=== PATIENT | female | born 1975 | race Caucasian/White ===

== ENCOUNTER 2023-01-02 10:46 | Outpatient (CLI) | payer OTHER, SELFPAY ==
--- NOTE | 2023-01-06 16:18 | WPDHOLTEREM ---
Holter/Event Monitor Holter/Event Monitor Date of procedure: 01/02/23 Holter/Event Procedure: 48 Hr Holter Monitor Indications: Palpitations Conclusion: 1. 48 hour holter monitor on 01/02/23. 2. Predominant rhythm is sinus rhythm. HR range 51-169 bpm; average 83 bpm. 3. There are 13,085 premature supraventricular complexes and 579 supraventricular couplets, 14 supraventricular bigeminy and 174 supraventricular trigeminy. There are 726 episodes of atrial tachycardia, fastest at 222 bpm and longest lasting 80 beats. 4. There are 1,008 premature ventricular complexes, 617 ventricular couplets, 25 ventricular triplets, 4 ventricular bigeminy and 6 ventricular trigeminy. There are 18 episodes of ventricular tachycardia, fastest at 200 bpm and longest lasting 9 beats. 5. No sinoatrial or atrioventricular blocks. No significant pauses greater than 2 seconds. 6. Patient reports symptoms of flutter which demonstrate sinus rhythm, HR range 72-114 bpm with PAC's and PVC's.
== END 2023-01-02 10:47 | disposition home or self-care (01) ==
LOC: ANHCARD 10:47
PROVIDERS: PCP Family Medicine; Visit Provider Nurse Practitioner Family
DX: R00.2 Palpitations (principal)
CPT/HCPCS: 93225; 93226

== ENCOUNTER 2023-05-29 09:13 | Day surgery (SDC) | payer OTHER, SELFPAY ==
[2023-03-31 10:21] VITALS: BMI 29.7
[2023-05-08 11:38] VITALS: BMI 28.2
[2023-05-29 09:49] VITALS: BMI 27.1
--- NOTE | 2023-05-29 09:56 | PM.HPGS ---
History of Present Illness History of Present Illness Consent: Risks, benefits, and alternatives have been discussed and questions answered. Patient agrees to proceed with procedure. Chief complaint: Neoplasm Screening Narrative: Kathleen Blanco is a 47 year old female Presents for screening colonoscopy. Patient has current weight appetite and is are normal. Patient denies abdominal pain. She has had no bleeding. Family history is noncontributory. Review of Systems Review of Systems: Review of systems noncontributory. [facility] Past Medical History Medical History History of chicken pox Family History Family History Mother Family history of thyroid disease Family history of arthritis Adopted Arthritis Grandparent Brain cancer Grandparent Heart disease Social History Social History (Updated 12/04/22 @ 13:56 by Sherwin Escobedo MA) Years smoked: 15 Smoking status: Former smoker Second hand tobacco smoke exposure: No Smoking end date: 09/08/04 Alcohol intake: never Drinks per week: 4 Substance use: never Substance use type: does not use Lack of Transportation: No Lack of Food: Never True Current Housing: I Have Housing Concerned About Future Housing: No Difficulty Paying Gas/Electric Bills: No Difficulty Paying for Meds: No Currently Unemployed: No Education: Master's Degree or Higher Difficulty w/ Childcare or Family Care: No Living arrangements: with family Spiritual care concerns: No Meds Home Medications and Allergies Home Medications Medication Instructions Recorded Confirmed Type levothyroxine 125 mcg tablet 125 mcg PO DAILY 05/08/23 05/29/23 History Allergies Allergy/AdvReac Type Severity Reaction Status Date / Time Sulfa (Sulfonamide Allergy Unknown Fever Verified 03/04/23 09:19 Antibiotics) Exam Narrative: Physical exam revealed patient to be alert. Signs stable. HEENT exam is on unremarkable. Patient is anicteric. Clear to auscultation and per heart is without murmur or extra sounds. Abdomen bowel sounds are present soft nontender with no organomegaly. Digital external rectal exam normal. Assessment and Plan Assessment and plan (1) Encounter for screening colonoscopy: Code(s): Z12.11 - Encounter for screening for malignant neoplasm of colon Status: Acute Assessment and Plan: Patient presents today for screening colonoscopy. She appears to be at average risk for colon polyps. Further recommendations may be given after endoscopy.
[2023-05-29] MEDS: LACTATED RINGERS 1,000 ML 150 ML IV CONT (10:03)
--- NOTE | 2023-05-29 10:41 | P.PNAN_ITS ---
Anes - Initial Pre Proc Eval Procedure: Operation Date: 05/29/23 11:00 Proposed Procedures p Screening Colonoscopy - Hugo Nieto MD Date/Time: 05/29/23 10:41 Surgeon: Hugo Nieto MD Pre Op Diagnosis: Neoplasm Screening Patient Data Age: 47 Gender: F Height: 1.65 m Weight: 73.8 kg Allergies Allergy/AdvReac Type Severity Reaction Status Date / Time Sulfa (Sulfonamide Allergy Unknown Fever Verified 03/04/23 09:19 Antibiotics) Home Medications Medication Instructions Recorded Confirmed Type levothyroxine 125 mcg tablet 125 mcg PO DAILY 05/08/23 05/29/23 History Patient hx anesthesia problems: none Family hx anesthesia problems: none Results Review: All pre-operative results and documents have been reviewed as part of the pre- operative evaluation. [facility] Past Medical History Medical History History of chicken pox Family History Family History Mother Family history of thyroid disease Family history of arthritis Adopted Arthritis Grandparent Brain cancer Grandparent Heart disease Social History Social History Years smoked: 15 Smoking status: Former smoker Second hand tobacco smoke exposure: No Smoking end date: 09/08/04 Alcohol intake: never Drinks per week: 4 Substance use: never Substance use type: does not use Lack of Transportation: No Lack of Food: Never True Current Housing: I Have Housing Concerned About Future Housing: No Difficulty Paying Gas/Electric Bills: No Difficulty Paying for Meds: No Currently Unemployed: No Education: Master's Degree or Higher Difficulty w/ Childcare or Family Care: No Living arrangements: with family Spiritual care concerns: No Anes - Eval Final PreProcedure Day of Procedure 05/29/23 10:41 Patient weight: overweight Heart: regular rate and rhythm Lungs: clear to auscultation Airway: Mallampati scale class II Neurological: alert and oriented Last oral intake: >/= 8 hours ASA classification: II Emergent: no Anesthetic plan: proceed Anesthesia type and monitoring: general GIVS and standard monitoring Results Review: All pre-operative results and documents have been reviewed as part of the pre-op erative evaluation. Informed Consent: The patient's anesthetic plan and its attendant risks and benefits were discussed with the patient/family/POA. Questions were solicited and answers provided to the satisfaction of the patient/family/POA.
[2023-05-29 11:07] VITALS: BP 110/67; PULSE 71; RESP 18; O2SAT 100
[2023-05-29 11:17] VITALS: BP 116/79; PULSE 65; RESP 15; O2SAT 100
[2023-05-29 11:27] VITALS: BP 127/82; PULSE 60; RESP 14; O2SAT 100
--- NOTE | 2023-05-29 13:18 | WPDANESPN ---
Anes - Prog Note Post-Op Date/Time: 05/29/23 13:18 Cardiovascular status: normal Respiratory status: normal Airway patency: baseline Mental status: baseline Post-Op hydration status: normal Vital Signs: Last Vital Signs Pulse 60 05/29/23 11:27 Resp 14 05/29/23 11:27 BP 127/82 05/29/23 11:27 Pulse Ox 100 05/29/23 11:27 O2 Del Method Room Air 05/29/23 11:27 Pain Score (VAS): 0 I/O: Intake & Output 05/28/23 05/29/23 05/29/23 23:59 07:59 15:59 Intake Total 500 Balance 500 Patient Feedback: Patient satisfied with anesthetic care.
== END 2023-05-29 11:36 | disposition home or self-care (01) ==
PROVIDERS: PCP Family Medicine; Visit Provider Internal Medicine Gastroenterology
PROC: 0DJD8ZZ Inspection of Lower Intestinal Tract, Via Natural or Artificial Opening Endoscopic (ICD-10-PCS; CPT 45378; principal; 2023-05-29 11:00)
DX: Z12.11 Encounter for screening for malignant neoplasm of colon (principal); K64.8 Other hemorrhoids
CPT/HCPCS: 45378

== ENCOUNTER 2024-04-30 09:06 | Outpatient (CLI) | payer OTHER, SELFPAY ==
[2024-04-30 13:56] LABS: Basophils Percent Auto 0.5 % (0.2-1.2); Eosinophils Absolute Auto 0.1 K/mm3 (0-0.3); Eosinophils Percent Auto 1.6 % (0-4.4); Immature Granulocyte Absolute 0.01 K/mm3 (0.00-0.031); Immature Granulocyte Percent A 0.2 % (0-0.5); Lymphocytes Absolute Auto 2.05 K/mm3 (0.9-3.2); Lymphocytes Percent Auto 32.3 % (18.3-44.2); Mean Corpuscular HGB Conc 32.6 g/dl (32-36); Mean Corpuscular Hemoglobin 29.7 pg (26-34); Mean Corpuscular Volume 91.3 fl (80-100); Mean Platelet Volume 10.6 fl (7.4-10.4); Monocytes Absolute Auto 0.5 K/mm3 (0.1-0.6); Monocytes Percent Auto 7.3 % (2.6-8.5); Neutrophils Absolute Auto 3.7 K/mm3 (1.3-6.7); Neutrophils Percent Auto 58.1 % (45.5-73.1); Platelet Count Result 287 k/mm3 (150-375); Red Blood Count 4.71 M/mm3 (4.2-5.4); Red Cell Distribution Width 13.3 % (11.5-14.5); White Blood Count 6.3 K/mm3 (4.5-10.0)
[2024-04-30 14:17] LABS: Alanine Aminotransferase 11 U/L (6-35); Albumin Level 4.3 g/dL (3.5-5.1); Alkaline Phosphatase 59 U/L (38-126); Anion Gap 8 mmol/L (4-12); Aspartate Amino Transferase 44 U/L (14-36); Bilirubin,Total 0.7 mg/dL (0.2-1.3); Blood Urea Nitrogen 13 mg/dL (7-17); Calcium 9.7 mg/dL (8.4-10.2); Carbon Dioxide 26 mmol/L (22-30); Chloride 104 mmol/L (98-107); Cholesterol 204 mg/dL (0-200); Estimated Glomerular Filt Rate > 60; Glucose 84 mg/dL (65-110); HDL Direct 95 mg/dL; Potassium 4.5 mmol/L (3.4-5.0); Sodium 138 mmol/L (137-145); Triglycerides 62 mg/dL (<150)
[2024-04-30 14:28] LABS: LDL Cholesterol Direct 83 mg/dL
[2024-04-30 15:34] LABS: Hemoglobin A1C 5.3 % (<5.7)
[2024-04-30 15:39] LABS: Thyroid Stimulating Hormone Reflex 0.424 uIU/mL (0.465-4.68)
[2024-04-30 21:52] LABS: Free T4 Free Thyroxine Reflex 1.76 ng/dL (0.78-2.19)
[2024-04-30 22:55] LABS: Total Triiodothyronine (T3) 1.05 NG/ML (0.97-1.69)
== END 2024-04-30 09:07 | disposition home or self-care (01) ==
LOC: ANHGOSHLAB 09:08
PROVIDERS: PCP Family Medicine; Visit Provider Nurse Practitioner Family
DX: E03.9 Hypothyroidism, unspecified (principal); I10 Essential (primary) hypertension; R73.01 Impaired fasting glucose; E53.8 Deficiency of other specified B group vitamins; E55.9 Vitamin D deficiency, unspecified
CPT/HCPCS: 36415; 80053; 80061; 82306; 82607; 83036; 84439; 84443; 84480; 85025